=== PATIENT | female | born 1975 | race Caucasian/White ===

== ENCOUNTER 2018-08-22 11:18 | Emergency (ER) | payer MEDICAID ==
[~2018-08-22] VITALS: Ht 170.2 cm; Wt 70.0 kg
[2018-08-22 11:46] VITALS: BP 109/73
[2018-08-22] MEDS ORDERED: AZIT-63 PO (12:32)
[2018-08-22] MEDS ORDERED: azithromycin 250mg tablet PO ONE (12:35)
== END 2018-08-22 12:38 | disposition home or self-care (01) ==
LOC: ER 11:19
DX: R05 Cough (principal); R50.9 Fever, unspecified; M79.10 Myalgia, unspecified site; F17.210 Nicotine dependence, cigarettes, uncomplicated; Z59.0 Homelessness; Z79.2 Long term (current) use of antibiotics
CPT/HCPCS: 71046; 99283

== ENCOUNTER 2018-09-07 09:48 | Emergency (ER) | payer MEDICAID ==
[~2018-09-07] VITALS: Ht 170.2 cm; Wt 74.1 kg
[~2018-09-07 09:48] MED LIST: AZIT-63 PO
[2018-09-07 10:33] VITALS: BP 114/77
[2018-09-07] MEDS ORDERED: CYCL-1 PO (11:27)
[2018-09-07] MEDS ORDERED: ACET-3067 PO (11:27)
== END 2018-09-07 11:37 | disposition home or self-care (01) ==
LOC: ER 09:48
DX: M25.551 Pain in right hip (principal); F17.200 Nicotine dependence, unspecified, uncomplicated; Z56.0 Unemployment, unspecified; Z79.899 Other long term (current) drug therapy; Z59.0 Homelessness
CPT/HCPCS: 99283